=== PATIENT | female | born 1985 | race Caucasian/White ===

== ENCOUNTER 2018-03-24 17:20 | Observation (INO) | payer BC, OTHER ==
[2018-03-24 18:30] VITALS: BMI 32.1
[2018-03-24] MEDS ORDERED: METOPROLOL TAR 25 MG TAB PO ONE (19:00)
[2018-03-24] MEDS ORDERED: ASPIRIN 325 MG TAB PO ONE (19:00)
[2018-03-24] MEDS ORDERED: ENOXAPARIN 80 MG/0.8 ML SQ ONE (19:00)
[2018-03-24 20:17] LABS: Absolute Lymphocytes (CBC) 2.5 K/uL (0.7-4.9); Absolute Monocytes 0.3 K/uL (0.1-1.3); Basophils % 0.4 % (0-1.3); Eosinophils % 1.2 % (0-4.4); Hematocrit 38.9 % (36.0-45.0); Lymphocytes % 27.6 % (15.3-44.8); MCH 35.7 pg (27.0-35.0); MCV 104.1 fL (80-100); MPV 7.4 fL (7.6-11.3); Monocytes % 3.8 % (3.3-12.3); RBC Red Blood Cell Count 3.74 M/uL (3.86-4.86)
[2018-03-24 20:20] LABS: ALT/SGPT 49 U/L (12-78); AST/SGOT 114 U/L (15-37); Albumin 3.4 g/dL (3.4-5.0); Alkaline Phosphatase 112 U/L (45-117); BUN Blood Urea Nitrogen 6 mg/dL (7-18); Bicarbonate 26 mmol/L (21-32); Bilirubin Total 0.2 mg/dL (0.2-1.0); Glucose Level 95 mg/dL (74-106); NT PRO-BNP 79 pg/mL (<125); Potassium 4.2 mmol/L (3.5-5.1); Protein, Total 7.8 g/dL (6.4-8.2); Sodium Level 138 mmol/L (136-145); Troponin I < 0.02 ng/mL (0.0-0.045)
--- NOTE | 2018-03-24 20:50 | RAD REPORT ---
EXAM DESCRIPTION: RAD - Chest Pa And Lat (2 Views) - 03/24/2018 8:37 pm CLINICAL HISTORY: Chest pain COMPARISON: None. TECHNIQUE: PA and lateral views of the chest were obtained. FINDINGS: The lungs are clear. Heart size is normal and central vasculature is within normal limit s. No pleural effusion or pneumothorax seen. No acute bony finding noted. No aortic abnormality. IMPRESSION: No acute cardiopulmonary process.
[2018-03-24] MEDS ORDERED: INFLUENZA VACCINE (for 3y+) 0.5 ML DOSE IMVAC ONE (21:00)
[2018-03-25] MEDS ORDERED: AMLODIPINE 10 MG TAB PO SCH (09:00)
[2018-03-25] MEDS ORDERED: LISINOPRIL 20 MG TAB PO SCH (09:00)
--- NOTE | 2018-03-25 09:58 | TREADKAT ---
90% H.R.: 167 100% H.R.: 186 Date of Study: 03/25/2018 Ht: 5 7 Wt: 205 lb 0 oz Consulting Physician: JEROD MEDICATIONS: NORVASC, LIPITOR, PRINIVIL HISTORY: CHEST PAINS PHYSICIAL EXAMINATION: RESTING B.P.: 156/107 RESTING H.R.: 97 RESTING EKG: DECREASED T WAVE ANTERIOR WALL EXERCISE TIME: 4:06 MAXIMUM HEART RATE: 162 102% OF PREDICTED B.P. AT PEAK STRESS: 152/109 H.R. AT 1 MINUTE POST EXERCISE: 151 IMPRESSION: QUESTIONABLE ANGINA AT 3 MINUTES. NON DIAGNOSTIC CHANGE ANTERIOR WALL.
[2018-03-25 10:23] VITALS: O2SAT 100
--- NOTE | 2018-03-25 12:22 | RAD REPORT ---
EXAM DESCRIPTION: NM - Rest Stress Cardiac Imaging - 03/25/2018 11:21 am CLINICAL HISTORY: CHEST PAIN Chest pain. COMPARISON: No comparisons TECHNIQUE: The patient was administered approximately 10mCi of Tc 99m Sestamibi prior to resting SPE CT imaging of the heart. The patient was then administered approximately 30 mCi of Tc 99m Sestamibi f ollowing exercise or pharmacologic stress. Multiplanar SPECT images were reviewed. FINDINGS: No stress induced ischemic defect is seen to suggest stress induced ischemia. No fixed def ect is seen to suggest hibernating myocardium or scarred myocardium. The end diastolic volume is 75 ml, the end systolic volume is 31 ml, and the ejection fraction is 59 %. IMPRESSION: No stress induced ischemia.
[2018-03-25 14:33] VITALS: BP 134/94; TEMP 97.9
[2018-03-25] MEDS ORDERED: ATORVASTATIN 10 MG TAB PO SCH (21:00)
--- NOTE | 2018-03-25 23:51 | HP ---
Date of Admission: 03/24/2018 Chief Complaint: Recurrent chest pain. History Of Present Illness: A 32-year-old female was brought to the office with recurrent retrostern al chest pain. The patient's EKG in the office showed T-wave inversion anterior wall. In view of he r symptoms and findings, the patient was admitted for observation. Past Medical History: Positive for hypertension, hyperlipidemia. Family History: Strongly positive for coronary artery disease. Personal History: Nonsmoker. Home Medicines: Norvasc, lisinopril, Lipitor. Review of Systems: No fever, chills, rigors. Physical Examination: General: Revealed a 32-year-old female, not in acute distress. Vital Signs: Normal. HEENT: Negative. Neck: Supple. JVD negative. Chest: Clear. Heart: Regular. Abdomen: Soft. Extremities: Mild pedal edema. Laboratory: Troponin normal. BNP normal. WBC normal. Chest x-ray negative. Assessment: 1.Recurrent chest pain. 2.Hypertension. 3.Hyperlipidemia. 4.Strong family history of coronary artery disease. Plan: The patient had initial troponin negative and the patient subsequently underwent Cardiolite st ress test. This has been reported as negative. In view of this, the patient will be discharged on t he same medications and she will be followed in the office. PATTI/WIN Voice ID: [id number]
== END 2018-03-25 15:08 | disposition home or self-care (01) ==
LOC: 4TH 17:54
PROVIDERS: ADMIT Internal Medicine; ATTEND Internal Medicine
DX: R07.9 Chest pain, unspecified (principal); I10 Essential (primary) hypertension; E78.5 Hyperlipidemia, unspecified; Z82.49 Family history of ischemic heart disease and other diseases of the circulatory system
CPT/HCPCS: 36415; 71046; 78452; 80053; 83880; 84484; 85025; 93017; A9500; G0378; J1650

== ENCOUNTER 2020-02-01 09:27 | Emergency (ER) | payer BC ==
[2020-02-01 10:24] LABS: Absolute Lymphocytes (CBC) 3.1 K/uL (0.7-4.9); Basophils % 0.8 % (0-1.3); Hematocrit 40.1 % (36.0-45.0); Lymphocytes % 44.9 % (15.3-44.8); MPV 7.7 fL (7.6-11.3)
[2020-02-01] MEDS ORDERED: ASPIRIN 81 MG CHEWABLE TABLET ONE (10:30)
[2020-02-01 10:40] LABS: ALT/SGPT 56 U/L (12-78); AST/SGOT 98 U/L (15-37); Albumin 3.8 g/dL (3.4-5.0); Alkaline Phosphatase 104 U/L (45-117); BUN Blood Urea Nitrogen 8 mg/dL (7-18); Bicarbonate 25 mmol/L (21-32); Bilirubin Direct 0.1 mg/dL (0-0.2); Bilirubin Total 0.2 mg/dL (0.2-1.0); Glucose Level 117 mg/dL (74-106); Magnesium 1.7 mg/dL (1.8-2.4); NT PRO-BNP 15 pg/mL (<125); Potassium 4.1 mmol/L (3.5-5.1); Protein, Total 8.4 g/dL (6.4-8.2); Sodium Level 139 mmol/L (136-145); Troponin (Emerg Dept Use Only) < 0.02 ng/mL (0.0-0.045)
--- NOTE | 2020-02-01 10:40 | RAD REPORT ---
EXAM DESCRIPTION: RAD - Chest Single View - 02/01/2020 10:25 am CLINICAL HISTORY: ABDOMINAL DISTENTION, chest pain COMPARISON: February 2018 TECHNIQUE: AP portable chest image was obtained 02/01/2020 10:25 am . FINDINGS: Lungs are clear. Heart and vasculature are normal. No measurable pleural effusion and no p neumothorax. No acute bony abnormality seen. No acute aortic findings suspected. IMPRESSION: No acute cardiopulmonary process.
--- NOTE | 2020-02-01 10:44 | RAD REPORT ---
EXAM DESCRIPTION: CT - Chest For Pe Angio - 02/01/2020 10:25 am CLINICAL HISTORY: CHEST PAIN COMPARISON: Chest Single View dated 02/01/2020 TECHNIQUE: Dynamically enhanced 3 mm thick images of the chest were obtained during administration o f approximately 150mL Isovue 370 IV contrast. Coronal and oblique MIP reconstruction images were gene rated and reviewed. Exam utilizes a protocol to evaluate the pulmonary arterial tree. All CT scans are performed using dose optimization technique as appropriate and may include automated exposure control or mA/KV adjustment according to patient size. FINDINGS: No pulmonary emboli are identified. The aorta as imaged shows no acute or suspicious finding. No pericardial thickening or effusion. No focal mass or consolidation. Respiratory motion accentuates the interstitial pattern. There is jett e minimal ground-glass opacification in the left upper lobe. No pleural effusion or pleural thickenin g. No mediastinal or hilar suspicious masses. No chest wall masses or abnormal axillary lymphadenopathy. Minimal hiatal hernia is present. Partially imaged liver shows mild fatty infiltration. IMPRESSION: No pulmonary emboli identified. No focal mass or consolidation. Prominent interstitial pattern and minimal hazy ground-glass opacific ation in the left upper lobe could indicate a minimal interstitial edema or infiltrate. Fatty infiltration of a partially imaged liver.
--- NOTE | 2020-02-01 11:08 | ER ---
Nurse's Notes [facility] Name: Nu Mcadams Age: 34 yrs Sex: Female : 1985 Arrival Date: 02/01/2020 Time: 09:29 Bed 8 Private MD: Kwame Gonzales R Diagnosis: Chest pain, unspecified;Acute bronchitis, unspecified Presentation: 01/31 09:37 Chief complaint: Patient states: can't breathe, is having pain across chest radiating iw to back, X 1 week, and has had swelling in feet X 2 weeks, hx of [place] in 2018 , is vomiting every morning, no cough fever or chills. Coronavirus screen: At this time, the client does not indicate any symptoms associated with coronavirus-19. Ebola Screen: Patient negative for fever greater than or equal to 101.5 degrees Fahrenheit, and additional compatible Ebola Virus Disease symptoms Patient denies exposure to infectious person. Patient denies travel to an Ebola-affected area in the 21 days before illness onset. No symptoms or risks identified at this time. Initial Sepsis Screen: Does the patient meet any 2 criteria? No. Patient's initial sepsis screen is negative. Does the patient have a suspected source of infection? No. Patient's initial sepsis screen is negative. Risk Assessment: Do you want to hurt yourself or someone else? Patient reports no desire to harm self or others. Onset of symptoms was January 26, 2020. 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 - Social history:: Smoking status: Patient/guardian denies using tobacco, the patient reports quitting approximately 2 years ago. Screenin:26 Abuse screen: Denies threats or abuse. Denies injuries from another. Nutritional sv screening: No deficits noted. Tuberculosis screening: No symptoms or risk factors identified. Fall Risk None identified. Assessment: 10:30 General: Appears in no apparent distress. comfortable, well developed, Behavior is sv calm, cooperative, appropriate for age. Pain: Complains of pain in chest Pain does not radiate. Pain currently is 9 out of 10 on a pain scale. Quality of pain is described as sharp, Pain began 1 day ago. Is intermittent, Aggravated by increased activity, Also complains of nausea. Neuro: Level of Consciousness is awake, alert, obeys commands, Oriented to person, place, time, situation, Moves all extremities. Full function Speech is normal. Cardiovascular: Rhythm is sinus rhythm. Respiratory: Airway is patent Respiratory effort is even, unlabored, Respiratory pattern is regular, symmetrical. Derm: Skin is pink, warm \T\ dry. Musculoskeletal: Reports BLE swelling. 11:26 Reassessment: Patient appears in no apparent distress at this time. Patient and/or sv family updated on plan of care and expected duration. Pain level reassessed. Patient is alert, oriented x 3, equal unlabored respirations, skin warm/dry/pink. Vital Signs: 09:37 BP 122 / 86; Pulse 110; Resp 16 S; Pulse Ox 97% on R/A; Weight 99.79 kg; Height 5 ft. 7 iw in. (170.18 cm); Pain 9/10; 10:35 BP 125 / 82; Pulse 92 MON; Resp 19; Pulse Ox 96% on R/A; sv 11:27 BP 113 / 74; Pulse 78; Resp 15; Pulse Ox 97% ; sv 09:37 Body Mass Index 34.46 (99.79 kg, 170.18 cm) iw 10:35 Sinus Rhythm sv ED Course: 09:29 Patient arrived in ED. mr 09:29 Kwame Gonzales MD is Private Physician. mr 09:40 Triage completed. iw 09:42 Arm band placed on. iw 09:43 Divya Gallardo, HUMZA is Primary Nurse. [id number] 09:43 Cris Al[facility]endarez FNP-C [facility]. snw 09:43 Camilo Bodn MD is Attending Physician. snw 10:10 Carolann Owen, HUMZA is Primary Nurse. sv 10:12 Initial lab(s) drawn, by nv, sent to lab. Inserted saline lock: 20 gauge in right iw antecubital area, using aseptic technique. Blood collected. Patient maintains SpO2 saturation greater than 95% on room air. 10:25 XRAY Chest (1 view) In Process Unspecified. EDMS 10:26 CT Chest For PE Angio In Process Unspecified. EDMS 10:26 Patient has correct armband on for positive identification. Bed in low position. Call sv light in reach. Side rails up X2. furniture upholsterer on. Pulse ox on. NIBP on. Door closed. Head of bed elevated. 11:07 Kwame Gonzales MD is Referral Physician. snw 11:27 No provider procedures requiring assistance completed. IV discontinued, intact, sv bleeding controlled, No redness/swelling at site. Pressure dressing applied. Administered Medications: 10:35 Drug: Aspirin Chewable Tablet 324 mg Route: PO; sv 11:26 Follow up: Response: No adverse reaction sv 11: Drug: Zithromax 500 mg Route: PO; sv 11:26 Follow up: Response: No adverse reaction; Medication administered at discharge. sv Outcome: 11:08 Discharge ordered by . snw 11:27 Discharged to home ambulatory. sv 11:27 Condition: stable 11:27 Discharge instructions given to patient, Instructed on discharge instructions, follow up and referral plans. medication usage, Demonstrated understanding of instructions, follow-up care, medications, Prescriptions given X 2. 11:27 Patient left the ED. sv Signatures: Dispatcher [employer] EDMS Carolann Owen, HUMZA CHING Cris Almendarez, BARREL BUNG REMOVER AND DUMPER-C BARREL BUNG REMOVER AND DUMPER-Csnw Merry Gallardo Mari Finn RN RN Divya Gallardo RN RN [id number] Corrections: (The following items were deleted from the chart) 10:35 10:35 BP 125 / 82; Pulse 92bpm; Resp 19bpm; Pulse Ox 96% RA; sv sv
--- NOTE | 2020-02-01 11:08 | EDPHYS ---
Physician Documentation [facility] Name: Nu Mcadams Age: 34 yrs Sex: Female : 1985 Arrival Date: 02/01/2020 Time: 09:29 Bed 8 Private MD: Kwame Gonzales R ED Physician Camilo Bond HPI: 01/31 10:10 This 34 yrs old Female presents to ER via Ambulatory with complaints of Chest snw Pain, Leg Swelling. 10:11 The patient or guardian reports chest pain that is located primarily in the anterior snw chest wall, bilaterally. The pain does not radiate. Associated signs and symptoms: Pertinent positives: lower extremity swelling, shortness of breath. The chest pain is described as a heaviness. Duration: The patient or guardian reports multiple episodes. Modifying factors: The symptoms are alleviated by nothing. the symptoms are aggravated by nothing. Severity of pain: At its worst the pain was moderate. It is unknown whether or not the patient has had similar symptoms in the past. sees Dr. Gonzales. 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 - Social history:: Smoking status: Patient/guardian denies using tobacco, the patient reports quitting approximately 2 years ago. ROS: 10:09 Constitutional: Negative for fever, chills, and weight loss, Eyes: Negative for injury, snw pain, redness, and discharge, ENT: Negative for injury, pain, and discharge, Neck: Negative for injury, pain, and swelling. 10:09 Abdomen/GI: Negative for abdominal pain, nausea, vomiting, diarrhea, and constipation, Back: Negative for injury and pain, : Negative for injury, bleeding, discharge, and swelling, Skin: Negative for injury, rash, and discoloration, Neuro: Negative for headache, weakness, numbness, tingling, and seizure. 10:09 MS/Extremity: Negative for injury and deformity. 10:09 Cardiovascular: Positive for chest pain, of the chest. 10:09 Cardiovascular: Positive for edema. 10:09 Respiratory: Positive for shortness of breath, at rest. "I can't breathe". Exam: 10:02 Constitutional: This is a well developed, well nourished patient who is awake, alert, snw and in no acute distress. Head/Face: Normocephalic, atraumatic. Eyes: Pupils equal round and reactive to light, extra-ocular motions intact. Lids and lashes normal. Conjunctiva and sclera are non-icteric and not injected. Cornea within normal limits. Periorbital areas with no swelling, redness, or edema. +exopthalmus ENT: Nares patent. No nasal discharge, no septal abnormalities noted. Tympanic membranes are normal and external auditory canals are clear. Oropharynx with no redness, swelling, or masses, exudates, or evidence of obstruction, uvula midline. Mucous membranes moist. Neck: Trachea midline, no thyromegaly or masses palpated, and no cervical lymphadenopathy. Supple, full range of motion without nuchal rigidity, or vertebral point tenderness. No Meningismus. Chest/axilla: Normal chest wall appearance and motion. Nontender with no deformity. No lesions are appreciated. Respiratory: Lungs have equal breath sounds bilaterally, clear to auscultation and percussion. No rales, rhonchi or wheezes noted. No increased work of breathing, no retractions or nasal flaring. Abdomen/GI: Soft, non-tender, with normal bowel sounds. No distension or tympany. No guarding or rebound. No evidence of tenderness throughout. Back: No spinal tenderness. No costovertebral tenderness. Full range of motion. Skin: Warm, dry with normal turgor. Normal color with no rashes, no lesions, and no evidence of cellulitis. MS/ Extremity: Pulses equal, no cyanosis. Neurovascular intact. Full, normal range of motion. Neuro: Awake and alert, GCS 15, oriented to person, place, time, and situation. Cranial nerves II-XII grossly intact. Motor strength 5/5 in all extremities. Sensory grossly intact. Cerebellar exam normal. Normal gait. Psych: Awake, alert, with orientation to person, place and time. Behavior, mood, and affect are within normal limits. 10:02 Cardiovascular: Rate: tachycardic, Rhythm: regular, Pulses: no pulse deficits are appreciated, Heart sounds: normal, Edema: is not appreciated. Vital Signs: 09:37 BP 122 / 86; Pulse 110; Resp 16 S; Pulse Ox 97% on R/A; Weight 99.79 kg; Height 5 ft. 7 iw in. (170.18 cm); Pain 9/10; 10:35 BP 125 / 82; Pulse 92 MON; Resp 19; Pulse Ox 96% on R/A; sv 11:27 BP 113 / 74; Pulse 78; Resp 15; Pulse Ox 97% ; sv 09:37 Body Mass Index 34.46 (99.79 kg, 170.18 cm) iw 10:35 Sinus Rhythm sv MDM: 10:02 Patient medically screened. snw 11:16 Data reviewed: vital signs, nurses notes. Data interpreted: Pulse oximetry: on room air snw is 97 %. Interpretation: normal. 01/31 09:52 Order name: Basic Metabolic Panel; Complete Time: 10:50 snw 01/31 09:52 Order name: CBC with Diff; Complete Time: 10:34 snw 01/31 09:52 Order name: LFT's; Complete Time: 10:50 snw 01/31 09:52 Order name: Magnesium; Complete Time: 10:50 snw 01/31 09:52 Order name: NT PRO-BNP; Complete Time: 10:50 snw 01/31 09:52 Order name: PT-INR; Complete Time: 10:34 snw 01/31 09:52 Order name: Troponin (emerg Dept Use Only); Complete Time: 10:50 snw 01/31 09:52 Order name: XRAY Chest (1 view); Complete Time: 10:50 snw 01/31 09:52 Order name: EKG; Complete Time: 09:53 snw 01/31 09:54 Order name: CT Chest For PE Angio; Complete Time: 10:50 snw 01/31 09:59 Order name: TSH; Complete Time: 10:50 snw 01/31 11:05 Order name: CREATININE WHOLE BLOOD; Complete Time: 11:07 EDMS 01/31 09:52 Order name: Cardiac monitoring; Complete Time: 10:10 snw 01/31 09:52 Order name: EKG - Nurse/Tech; Complete Time: 10:10 snw 07 09:52 Order name: IV Saline Lock; Complete Time: 10:10 01/31 09:52 Order name: Labs collected and sent; Complete Time: 10:01/31 09:52 Order name: O2 Per Protocol; Complete Time: 10:01/31 09:52 Order name: O2 Sat Monitoring; Complete Time: 10:10 snw EC:02 Rate is 92 beats/min. Rhythm is regular. QRS [place] is Normal. [place] interval is normal. QT snw interval is prolonged. T waves are Inverted in leads V2, V3, V4. Clinical impression: NSR w/ Non-specific ST/T Changes. Administered Medications: 10:35 Drug: Aspirin Chewable Tablet 324 mg Route: PO; sv 11:26 Follow up: Response: No adverse reaction sv 11:26 Drug: Zithromax 500 mg Route: PO; sv 11:26 Follow up: Response: No adverse reaction; Medication administered at discharge. sv Disposition: 17:19 Co-signature as Attending Physician, Camilo Bond MD. ma2 Disposition: 02/01/20 11:08 Discharged to Home. Impression: Chest pain, unspecified, Acute bronchitis, unspecified. - Condition is Stable. - Discharge Instructions: Acute Bronchitis, Adult, Nonspecific Chest Pain, Rehydration, Adult, Peripheral Edema. - Prescriptions for Albuterol Sulfate 90 mcg/actuation - inhale 1-2 puff by INHALATION route every 4-6 hours; 1 Inhaler. Zithromax 500 mg Oral Tablet - take 1 tablet by ORAL route once daily for 5 days; 5 tablet. - Work release form, Medication Reconciliation Form, Thank You Letter, Antibiotic Education, Prescription Opioid Use form. - Follow up: Emergency Department; When: As needed; Reason: Worsening of condition. Follow up: Kwame Gonzales MD; When: 2 - 3 days; Reason: Recheck today's complaints, Continuance of care, Re-evaluation by your physician. Signatures: Dispatcher [employer] Carolann Serrano RN RN sv Waters, Shelly, PROCESSING LEAD-C PROCESSING LEAD-[place] Mari Finn RN RN iw Alzahri, Mohammad, MD MD ma2 Corrections: (The following items were deleted from the chart) 11:27 11:08 02/01/2020 11:08 Discharged to Home. Impression: Chest pain, unspecified; Acute sv bronchitis, unspecified. Condition is Stable. Forms are Medication Reconciliation Form, Thank You Letter, Antibiotic Education, Prescription Opioid Use. Follow up: Emergency Department; When: As needed; Reason: Worsening of condition. Follow up: Kwame Gonzales; When: 2 - 3 days; Reason: Recheck today's complaints, Continuance of care, Re-evaluation by your physician. snw
[2020-02-01] MEDS ORDERED: AZITHROMYCIN 250 MG TAB ONE (11:24)
[2020-02-02 00:25] VITALS: BP 113/74; O2SAT 97
--- NOTE | 2020-02-02 20:03 | EKG ---
Test Date: 2020-02-01 Test Time: 09:49:32 Retail Support Specialist: KATIE MEASUREMENT RESULTS: Intervals: Rate: 92 OK: 156 QRSD: 90 QT: 386 QTc: 477 Stella: P: 29 OK: 156 QRS: 7 T: -15 INTERPRETIVE STATEMENTS: Normal sinus rhythm Low voltage QRS T wave abnormality, consider anterior ischemia Prolonged QT Abnormal ECG No previous ECG available for comparison Electronically Signed On 02-02-20 19:59:32 CDT by Kenneth Boothe
== END 2020-02-01 11:27 | disposition home or self-care (01) ==
LOC: ER 09:27
DX: J20.9 Acute bronchitis, unspecified (principal); I10 Essential (primary) hypertension; E78.5 Hyperlipidemia, unspecified; I25.2 Old myocardial infarction
CPT/HCPCS: 93005; 85025; 80048; 36415; 83735; 85610; 82565; 80076; 84443; 84484; 83880; 71275; 71045; 99285; Q9967

== ENCOUNTER 2021-09-14 15:00 | Emergency (ER) | payer BC, SELFPAY ==
--- OUTSIDE RECORDS SUMMARY | 2021-09-14 15:03 | XMS REPORT | Continuity of Care Document ---
:[address] [facility] t Address [address] [place] [address] Care Team Providers Name Role Phone Lab, Fam Pob I Attending Clinician Unavailable Jennifer BARTHOLOMEW Attending Clinician Doctor Unassigned, Name Attending Clinician Unavailable Payers Payer Name Policy Type Policy Number Effective Date Expiration Date S ource Problems This patient has no known problems. Allergies, Adverse Reactions, Alerts Allergy Allergy Status Severity Reaction(s) Onset Inactive Treating Comm ents Source Name Type Date Date Clinician NO KNOWN Drug Active Univers ALLERGIE Class it[facility] of [facility] Social History Social Habit Start Date Stop Date Quantity Comments [facility] to [facility] Smoking Status Start Date Stop Date Source [facility] Medications This patient has no known medications. Procedures This patient has no known procedures. Encounters Start End Encounter Admission Attending Care Care Encounter Source Date/Time Date/Time Type Type Clinicians Facility Department ID 2020-05-10 2020-05-10 Laboratory Lab, [facility] Fam Pob I [facility] [id number] Univers 10:52:48 11:12:48 Only Airam Rodriguez [facility] [id number] [facility] [id number] Girish as Magda [phone] Wi dical [address] Office [address] 2020-05-10 2020-05-10 Outpatient R [facility] [id number] Univers 10:40:00 10:40:00 ity [facility] 2020-05-10 2020-05-10 Letter Doctor LO [id number] Univers 00:00:00 00:00:00 (Out) Unassigned, JUAN [id number] ity of [place] [facility] [id number] Girish as [phone] [place] [address] [address] Results This patient has no known results.
--- NOTE | 2021-09-14 16:05 | EDPHYS ---
Physician Documentation [facility] Name: Nu Mcadams Age: 36 yrs Sex: Female : 1985 Arrival Date: 09/14/2021 Time: 15:06 Bed 11 Private MD: ED Physician Camilo Bond HPI: 09/14 16:02 This 36 yrs old Female presents to ER via Ambulatory with complaints of Rash. ma2 16:02 86-year-old female with history of psoriasis, presents with psoriasis flareup in both ma2 arms and upper chest, bilateral upper thigh, she had similar symptoms in the past she takes hydrocortisone ointment which has not been helping, patient also started taking Benadryl at home and calamine lotion, patient asked for steroid shot and prescription for steroid. Historical: - Allergies: 15:10 No Known Allergies; ab2 - PMHx: 15:10 Hyperlipidemia; Hypertension; Myocardial infarction; ab2 - Immunization history:: Adult Immunizations up to date. - Social history:: Smoking status: Patient denies any tobacco usage or history of. - Family history:: not pertinent. ROS: 16:02 Constitutional: Negative for fever, chills, and weight loss. ma2 16:02 All other systems are negative. Exam: 16:02 Constitutional: This is a well developed, well nourished patient who is awake, alert, ma2 and in no acute distress. Head/Face: Normocephalic, atraumatic. Eyes: Pupils equal round and reactive to light, extra-ocular motions intact. Lids and lashes normal. Conjunctiva and sclera are non-icteric and not injected. Cornea within normal limits. Periorbital areas with no swelling, redness, or edema. ENT: Nares patent. No nasal discharge, no septal abnormalities noted. Tympanic membranes are normal and external auditory canals are clear. Oropharynx with no redness, swelling, or masses, exudates, or evidence of obstruction, uvula midline. Mucous membranes moist. Neck: Trachea midline, no thyromegaly or masses palpated, and no cervical lymphadenopathy. Supple, full range of motion without nuchal rigidity, or vertebral point tenderness. No Meningismus. Chest/axilla: Normal chest wall appearance and motion. Nontender with no deformity. No lesions are appreciated. Cardiovascular: Regular rate and rhythm with a normal S1 and S2. No gallops, murmurs, or rubs. Normal PMI, no JVD. No pulse deficits. Respiratory: Lungs have equal breath sounds bilaterally, clear to auscultation and percussion. No rales, rhonchi or wheezes noted. No increased work of breathing, no retractions or nasal flaring. Abdomen/GI: Soft, non-tender, with normal bowel sounds. No distension or tympany. No guarding or rebound. No evidence of tenderness throughout. Back: No spinal tenderness. No costovertebral tenderness. Full range of motion. Skin: Patient has scattered scaling Psoriatec rash both flexor aspect of both arms and hips and upper chest, otherwise warm, dry with normal turgor. Normal color with no rashes, no lesions, and no evidence of cellulitis. MS/ Extremity: Pulses equal, no cyanosis. Neurovascular intact. Full, normal range of motion. Neuro: Awake and alert, GCS 15, oriented to person, place, time, and situation. Cranial nerves II-XII grossly intact. Motor strength 5/5 in all extremities. Sensory grossly intact. Cerebellar exam normal. Normal gait. Vital Signs: 15:08 BP 136 / 97; Pulse 107; Resp 17; Temp 98.0; Pulse Ox 100% ; Weight 90.72 kg; Height 5 ab2 ft. 7 in. (170.18 cm); Pain 0/10; 15:20 BP 130 / 92; Pulse 99; Resp 18; Pulse Ox 100% on R/A; Pain 0/10; ld1 15:08 Body Mass Index 31.32 (90.72 kg, 170.18 cm) ab2 MDM: 15:13 Patient medically screened. ma2 16:02 Differential diagnosis: Psoriasis flareup versus rash versus allergic reaction, there ma2 is no clinical cellulitis. Data reviewed: vital signs, nurses notes. Counseling: I had a detailed discussion with the patient and/or guardian regarding: the historical points, exam findings, and any diagnostic results supporting the discharge/admit diagnosis, the presence of at least one elevated blood pressure reading (>120/80) during this emergency department visit, the need for outpatient follow up. Response to treatment: the patient's symptoms have markedly improved after treatment. Administered Medications: 16:21 Drug: MethylPREDNISolone Sodium Succinate 125 mg Route: IM; Site: right deltoid; ld1 Disposition Summary: 09/14/21 16:05 Discharge Ordered Location: Home ma2 Condition: Stable ma2 Diagnosis - Rash and other nonspecific skin eruption ma2 Followup: ma2 - With: Private Physician - When: Tomorrow - Reason: If symptoms return, Continuance of care Discharge Instructions: - Discharge Summary Sheet ma2 - Rash, Adult, [id number] ma2 Forms: - Medication Reconciliation Form ma2 - Thank You Letter ma2 - Antibiotic Education ma2 - Prescription Opioid Use ma2 - Work release form ld1 Prescriptions: - Medrol (Milad) 4 mg Oral Tablets, Dose Pack - take 1 tablet by ORAL route as directed - follow package instructions; 1 ma2 packet; Refills: 0, Product Selection Permitted Signatures: Camilo Bond MD MD ma2 Kylei Carbajal RN RN ld1 Sukumar Yuan2
--- NOTE | 2021-09-14 16:05 | ER ---
Nurse's Notes [facility] Name: Nu Mcadams Age: 36 yrs Sex: Female : 1985 Arrival Date: 09/14/2021 Time: 15:06 Bed 11 Private MD: Diagnosis: Rash and other nonspecific skin eruption Presentation: 09/14 15:08 Chief complaint: Patient states: 'Susan had this rash for about a month and I thought it ab2 was my psoriasis but nothing I do helps." Pt states she has rash to chest, both arms and back of both legs. Coronavirus screen: Vaccine status: Patient reports receiving the 2nd dose of the covid vaccine. Client denies travel out of the [place] in the last 14 days. At this time, the client does not indicate any symptoms associated with coronavirus-19. Ebola Screen: Patient negative for fever greater than or equal to 101.5 degrees Fahrenheit, and additional compatible Ebola Virus Disease symptoms Patient denies exposure to infectious person. Patient denies travel to an Ebola-affected area in the 21 days before illness onset. No symptoms or risks identified at this time. Initial Sepsis Screen: Does the patient meet any 2 criteria? No. Patient's initial sepsis screen is negative. Does the patient have a suspected source of infection? No. Patient's initial sepsis screen is negative. Risk Assessment: Do you want to hurt yourself or someone else? Patient reports no desire to harm self or others. Onset of symptoms is unknown. 15:08 Method Of Arrival: Ambulatory ab2 15:08 Acuity: JEAN-CLAUDE 4 ab2 Triage Assessment: 15:10 General: Appears in no apparent distress. uncomfortable, Behavior is calm, cooperative, ab2 appropriate for age. Pain: Denies pain. Cardiovascular: No deficits noted. Respiratory: No deficits noted. Airway is patent Respiratory effort is even, unlabored, Respiratory pattern is regular, symmetrical. GI: No deficits noted. No signs and/or symptoms were reported involving the gastrointestinal system. Derm: Rash noted that is itchy, red, raised, Reports itching, pain. Historical: - Allergies: 15:10 No Known Allergies; ab2 - PMHx: 15:10 Hyperlipidemia; Hypertension; Myocardial infarction; ab2 - Immunization history:: Adult Immunizations up to date. - Social history:: Smoking status: Patient denies any tobacco usage or history of. - Family history:: not pertinent. Screenin:20 Abuse screen: Denies threats or abuse. Denies injuries from another. Nutritional ld1 screening: No deficits noted. Tuberculosis screening: No symptoms or risk factors identified. Fall Risk None identified. Assessment: 15:20 General: Appears in no apparent distress. comfortable, Behavior is calm, cooperative, ld1 appropriate for age. Pain: Denies pain. Neuro: Level of Consciousness is awake, alert, obeys commands, Oriented to person, place, time, situation. Cardiovascular: Capillary refill < 3 seconds Patient's skin is warm and dry. Respiratory: Airway is patent Respiratory effort is even, unlabored, Respiratory pattern is regular, symmetrical. GI: Abdomen is flat, non-distended. : No signs and/or symptoms were reported regarding the genitourinary system. EENT: No signs and/or symptoms were reported regarding the EENT system. Derm: Rash noted that is on back, abdomen, right arm, left arm, right leg and left leg. Musculoskeletal: No signs and/or symptoms reported regarding the musculoskeletal system. Vital Signs: 15:08 BP 136 / 97; Pulse 107; Resp 17; Temp 98.0; Pulse Ox 100% ; Weight 90.72 kg; Height 5 ab2 ft. 7 in. (170.18 cm); Pain 0/10; 15:20 BP 130 / 92; Pulse 99; Resp 18; Pulse Ox 100% on R/A; Pain 0/10; ld1 15:08 Body Mass Index 31.32 (90.72 kg, 170.18 cm) ab2 ED Course: 15:06 Patient arrived in ED. as 15:10 Triage completed. ab2 15:10 Arm band placed on right wrist. ab2 15:11 Kylie Carbajal, HUMZA is Primary Nurse. ld1 15:13 Camilo Bond MD is Attending Physician. ma2 15:20 Patient has correct armband on for positive identification. Placed in gown. Bed in low ld1 position. Call light in reach. Side rails up X2. laboratory monitor on. Pulse ox on. NIBP on. Door closed. Noise minimized. Warm blanket given. 15:20 No provider procedures requiring assistance completed. ld1 16:23 Patient did not have IV access during this emergency room visit. ld1 Administered Medications: 16:21 Drug: MethylPREDNISolone Sodium Succinate 125 mg Route: IM; Site: right deltoid; ld1 Outcome: 16:05 Discharge ordered by . ma2 16:23 Discharged to home ambulatory. ld1 16:23 Condition: stable 16:23 Discharge instructions given to patient, Instructed on discharge instructions, follow up and referral plans. medication usage, Demonstrated understanding of instructions, follow-up care, medications, Prescriptions given X 1. 16:23 Patient left the ED. ld1 Signatures: Carolina Young Mohammad, MD MD ma2 Kylie Carbajal RN RN ld1 Sukumar Yuan2
[2021-09-14] MEDS ORDERED: METHYLPREDNISOLONE 125 MG INJ ONE (16:21)
[2021-09-14 16:40] VITALS: TEMP 98; O2SAT 100
[2021-09-14 16:42] VITALS: BP 130/92
== END 2021-09-14 16:23 | disposition home or self-care (01) ==
LOC: ER 15:00
DX: R21 Rash and other nonspecific skin eruption (principal); I10 Essential (primary) hypertension; E78.5 Hyperlipidemia, unspecified; I25.2 Old myocardial infarction
CPT/HCPCS: 96372; 99284; J2930

== ENCOUNTER 2023-02-11 15:07 | Emergency (ER) | payer OTHER ==
--- OUTSIDE RECORDS SUMMARY | 2023-02-11 15:09 | XMS REPORT | Continuity of Care Document ---
:1985 Author Organization [facility] t Address [address] [facility] [address] [place] [id number] Care Team Providers Name Role Phone Lab, [facility] Fam Pob I Attending Clinician Unavailable Airam [place] Attending Clinician Doctor Unassigned, [place] Attending Clinician Unavailable Payers Payer Name Policy Type Policy Number Effective Date Expiration Date S ource Problems This patient has no known problems. Allergies, Adverse Reactions, Alerts Allergy Allergy Status Severity Reaction(s) Onset Inactive Treating Comm ents Source Name Type Date Date Clinician NO KNOWN Drug Active Univers ALLERGIE Class ity of [facility] Social History Social Habit Start Date Stop Date Quantity Comments [facility] to [facility]2 [facility] Smoking Status Start Date Stop Date Source [facility] Medications This patient has no known medications. Procedures This patient has no known procedures. Encounters Start End Encounter Admission Attending Care Care Encounter Source Date/Time Date/Time Type Type Clinicians Facility Department ID 2020-05-10 2020-05-10 Laboratory Lab, [facility] Fam Pob I [facility] [id number] Univers 10:52:48 11:12:48 Only Airam Rodriguez [facility] [id number] [facility] [id number] Girish as Magda [phone] Ct dic[address] Office Building One 2020-05-10 2020-05-10 Outpatient R [facility] [id number] Univers 10:40[facility]00 [facility]:40[facility] 2020-05-10 2020-05-10 Letter Doctor LO [id number] Univers 00:00:00 00:00:00 (Out) Unassigned, JUAN [id number] ity of [place] [facility] [id number] Griish as [phone] [facility] [address] Results This patient has no known results.
--- NOTE | 2023-02-11 16:07 | RAD REPORT ---
EXAM DESCRIPTION: CT - Head Brain Wo Cont - 02/11/2023 3:40 pm CLINICAL HISTORY: sinusitis x 1 month;Dizziness COMPARISON: No comparisons TECHNIQUE: Noncontrast head CT images were obtained without IV contrast. Multiplanar reformats were generated and reviewed. All CT scans are performed using dose optimization technique as appropriate and may include automated exposure control or mA/KV adjustment according to patient size. FINDINGS: No intracranial hemorrhage, mass, or edema. Midline structures are unremarkable. Normal ventricular caliber for age. Valdovinos-white matter differentiation is preserved, without evidence of acute infarct. No abnormal extra- axial fluid collections. Mastoid air cells and visualized portions of the paranasal sinuses are clear. No acute bony findings. IMPRESSION: No evidence of an acute intracranial process.
[2023-02-11 17:59] LABS: Absolute Lymphocytes (CBC) 2.3 K/uL (0.7-4.9); Hematocrit 32.7 % (36.0-45.0); Lymphocytes % 18.9 % (15.3-44.8); MCV 102.5 fL (80-100); MPV 7.4 fL (7.6-11.3); Platelets 218 thou/uL (152-406); RBC Red Blood Cell Count 3.19 M/uL (3.86-4.86)
[2023-02-11 18:42] LABS: Albumin 3.4 g/dL (3.4-5.0); Bilirubin Total 0.5 mg/dL (0.2-1.0); Protein, Total 7.7 g/dL (6.4-8.2)
[2023-02-11 18:47] LABS: Thyroid Stimulating Hormone 5.07 uIU/mL (0.358-3.740)
--- NOTE | 2023-02-11 18:53 | EDPHYS ---
Physician Documentation [facility] Name: Nu Mcadams Age: 37 yrs Sex: Female : 1985 Arrival Date: 02/11/2023 Time: 15:07 Bed 9 Private MD: ED Physician Dakota Wooten HPI: 02/11 15:24 This 37 yrs old Female presents to ER via Ambulatory with complaints of Sinus snw Congestion, Vomiting. 15:24 The patient or guardian reports pt has not felt well x 1 month. Has been to Dr. Ott, w PCP, several times. Pt dx with macrocytic anemia and sinusitis. Given Augmentin, stopped this abx secondary to light sensitivity. Started Levaquin, Flonase, and folic acid. Pt states she became constipated and was given dulcolax. Vomited all weekend and now feels shaky, nauseated, and generally unwell. Onset: The symptoms/episode began/occurred gradually, 1 month(s) ago, and became worse today, and became persistent. Severity of symptoms: At their worst the symptoms were moderate, severe. Associated signs and symptoms: Pertinent positives: nausea, rhinorrhea, sore throat, vomiting. It is unknown whether or not the patient has had similar symptoms in the past. as noted. 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 - Social history:: Smoking status: Reported history of juuling and/or vaping. ROS: 15:23 Eyes: Negative for injury, pain, redness, and discharge, ENT: Negative for injury, snw pain, and discharge, Neck: Negative for injury, pain, and swelling, Cardiovascular: Negative for chest pain, palpitations, and edema, Respiratory: Negative for shortness of breath, cough, wheezing, and pleuritic chest pain, Abdomen/GI: Negative for abdominal pain, nausea, vomiting, diarrhea, and constipation, Back: Negative for injury and pain, : Negative for injury, bleeding, discharge, and swelling, MS/Extremity: Negative for injury and deformity, Skin: Negative for injury, rash, and discoloration, Psych: Negative for depression, anxiety, suicide ideation, homicidal ideation, and hallucinations, 15:23 Constitutional: Positive for body aches, fatigue, malaise, have not felt well since last month. , 15:23 Neuro: Positive for dizziness, near syncope, shakiness, Exam: 15:23 Constitutional: This is a well developed, well nourished patient who is awake, alert, snw and in no acute distress. Head/Face: Normocephalic, atraumatic. Eyes: Pupils equal round and reactive to light, extra-ocular motions intact. Lids and lashes normal. Conjunctiva and sclera are non-icteric and not injected. Cornea within normal limits. Periorbital areas with no swelling, redness, or edema. ENT: Nares patent. No nasal discharge, no septal abnormalities noted. Tympanic membranes are normal and external auditory canals are clear. Oropharynx with no redness, swelling, or masses, exudates, or evidence of obstruction, uvula midline. Mucous membranes moist. Neck: Trachea midline, no thyromegaly or masses palpated, and no cervical lymphadenopathy. Supple, full range of motion without nuchal rigidity, or vertebral point tenderness. No Meningismus. Chest/axilla: Normal chest wall appearance and motion. Nontender with no deformity. No lesions are appreciated. Cardiovascular: Regular rate and rhythm with a normal S1 and S2. No gallops, murmurs, or rubs. Normal PMI, no JVD. No pulse deficits. Respiratory: Lungs have equal breath sounds bilaterally, clear to auscultation and percussion. No rales, rhonchi or wheezes noted. No increased work of breathing, no retractions or nasal flaring. Abdomen/GI: Soft, non-tender, with normal bowel sounds. No distension or tympany. No guarding or rebound. No evidence of tenderness throughout. Back: No spinal tenderness. No costovertebral tenderness. Full range of motion. Skin: Warm, dry with normal turgor. Normal color with no rashes, no lesions, and no evidence of cellulitis. MS/ Extremity: Pulses equal, no cyanosis. Neurovascular intact. Full, normal range of motion. Neuro: Awake and alert, GCS 15, oriented to person, place, time, and situation. Cranial nerves II-XII grossly intact. Motor strength 5/5 in all extremities. Sensory grossly intact. Cerebellar exam normal. Normal gait. Psych: Awake, alert, with orientation to person, place and time. Behavior, mood, and affect are within normal limits. Vital Signs: 15:19 BP 140 / 107 Sitting; Pulse 98; Resp 17; Temp 98.2(TE); Pulse Ox 100% on R/A; Weight me1 55.34 kg; Height 5 ft. 7 in. ; 19:00 BP 123 / 85; Pulse 92; Resp 16; Pulse Ox 100% on R/A; db 15:19 Body Mass Index 19.11 (55.34 kg, 170.18 cm) me1 MDM: 15:12 Patient medically screened. snw 18:54 Differential Diagnosis: Sinusitis Pharyngitis Allergic Rhinitis Viral Syndrome. Data snw reviewed: vital signs, nurses notes. Counseling: I had a detailed discussion with the patient and/or guardian regarding the historical points, exam findings, and any diagnostic results supporting the discharge/admit diagnosis, lab results, radiology results, the need for outpatient follow up, for definitive care, to return to the emergency department if symptoms worsen or persist or if there are any questions or concerns that arise at home. Special discussion: Based on the patient's Hx, exam, and Dx evaluation, there is no indication for emergent surgery or inpatient Tx. It is understood by the patient/guardian that if the Sx's persist or worsen they need to return immediately for re-evaluation. Based on the history and exam findings, there is no indication for further emergent testing or inpatient evaluation. I discussed with the patient/guardian the need to see the primary care provider for further evaluation of the symptoms. 02/11 15:20 Order name: CBC with Diff; Complete Time: 18:23 snw 02/11 15:20 Order name: B12; Complete Time: 19: snw 02/11 15:20 Order name: CMP; Complete Time: 19: snw 02/11 15:20 Order name: TSH; Complete Time: 19: snw 02/11 18:50 Order name: T4 Free; Complete Time: 19: EDMS 02/11 15:20 Order name: CT Head Brain wo Cont; Complete Time: 16:19 snw Administered Medications: No medications were administered Disposition: 16:09 I was immediately available on-site in the Emergency Department for consultation in the ms3 care of the patient. Disposition Summary: 02/11/23 18:53 Discharge Ordered Notes: Location: Home snw Condition: Stable snw Diagnosis - Other malaise and fatigue snw Followup: snw - With: Emergency Department - When: As needed - Reason: Worsening of condition Followup: snw - With: Private Physician - When: 2 - 3 days - Reason: Recheck today's complaints, Continuance of care, Re-evaluation by your physician Discharge Instructions: - Discharge Summary Sheet snw - Fatigue snw - DASH Eating Plan snw - Lactose-Controlled Eating Plan, Adult snw - Vomiting, Adult snw Forms: - Medication Reconciliation Form snw - Thank You Letter snw - Antibiotic Education snw - Prescription Opioid Use snw - Patient Portal Instructions snw - Leadership Thank You Letter snw - Work release form db Prescriptions: - promethazine 25 mg Oral Tablet - take 1 tablet by ORAL route every 6 hours As needed; 20 tablet; Refills: 0, snw Product Selection Permitted Signatures: Dispatcher [employer] EDMS Cris Almendarez, RAG PRODUCTION WORKER-C RAG PRODUCTION WORKER-Csnw Dakota Wooten DO DO ms3 Luz Elena Silva, RN RN me1
--- NOTE | 2023-02-11 18:53 | ER ---
Nurse's Notes [facility] Name: Nu Mcadams Age: 37 yrs Sex: Female : 1985 Arrival Date: 02/11/2023 Time: 15:07 Bed 9 Private MD: Diagnosis: Other malaise and fatigue Presentation: 02/11 15:19 Chief complaint: Patient states: sinus congestion since january 14. tx completed. me1 vomiting, constipation and dizziness for about a week. Coronavirus screen: Vaccine status: Patient reports being unvaccinated. Ebola Screen: No symptoms or risks identified at this time. Initial Sepsis Screen: Does the patient meet any 2 criteria? No. Patient's initial sepsis screen is negative. Does the patient have a suspected source of infection? Yes: Productive cough/pneumonia. Risk Assessment: Do you want to hurt yourself or someone else? Patient reports no desire to harm self or others. Onset of symptoms is unknown. 15:19 Method Of Arrival: Ambulatory me1 15:19 Acuity: JEAN-CLAUDE 4 me1 Triage Assessment: 19:23 GI: Reports. 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 - Social history:: Smoking status: Reported history of juuling and/or vaping. Screenin:10 [facility] ED Fall Risk Assessment (Adult) History of falling in the last 3 months, db including since admission No falls in past 3 months (0 pts) Confusion or Disorientation No (0 pts) Score/Fall Risk Level 0 - 2 = Low Risk Oriented to surroundings, Maintained a safe environment. Abuse screen: Denies threats or abuse. Denies injuries from another. Nutritional screening: No deficits noted. Tuberculosis screening: No symptoms or risk factors identified. Assessment: 17:33 Reassessment: Patient appears in no apparent distress at this time. Patient and/or db family updated on plan of care and expected duration. Pain level reassessed. Patient is alert, oriented x 3, equal unlabored respirations, skin warm/dry/pink. Reassessment: NASAL CONGESTION, VOMITING. General: Appears in no apparent distress. comfortable, Behavior is calm, cooperative. Pain: Complains of pain in abdomen. GI: Abdomen is non-distended. 19:10 Reassessment: Patient appears in no apparent distress at this time. Patient and/or db family updated on plan of care and expected duration. Pain level reassessed. Patient is alert, oriented x 3, equal unlabored respirations, skin warm/dry/pink. Patient states feeling better. Patient states symptoms have improved. Vital Signs: 15:19 BP 140 / 107 Sitting; Pulse 98; Resp 17; Temp 98.2(TE); Pulse Ox 100% on R/A; Weight me1 55.34 kg; Height 5 ft. 7 in. ; 19:00 BP 123 / 85; Pulse 92; Resp 16; Pulse Ox 100% on R/A; db 15:19 Body Mass Index 19.11 (55.34 kg, 170.18 cm) me1 ED Course: 15:10 Patient arrived in ED. mr 15:12 Cris Almendarez FNP-C [facility]. snw 15:12 Dakota Wooten DO is Attending Physician. snw 15:23 Triage completed. me1 15:23 Arm band placed on Patient placed in waiting room. me1 15:41 CT Head Brain wo Cont In Process Unspecified. EDMS 16:33 Natalia Brennan, RN is Primary Nurse. db 17:20 Inserted saline lock: 20 gauge in right antecubital area, using aseptic technique. db Blood collected. 19:10 Patient has correct armband on for positive identification. Bed in low position. Call db light in reach. Side rails up X 1. Provided Education on: DISCHARGE. 19:10 No provider procedures requiring assistance completed. IV discontinued, intact, db bleeding controlled, No redness/swelling at site. Administered Medications: No medications were administered Medication: 19:10 VIS not applicable for this client. db Outcome: 18:53 Discharge ordered by . snw 19:10 Discharged to home ambulatory, db 19:10 Condition: stable 19:10 Discharge instructions given to patient, family, Instructed on discharge instructions, follow up and referral plans. Prescriptions given X 1, 19:24 Patient left the ED. db Signatures: Dispatcher [employer] EDMS Cris Almendarez FNP-C [employer]SUITS INSTRUCTOR-Csnw Merry Gallardo, Reg Reg mr Natalia Brennan, RN RN db Luz Elena Silva, RN RN me1
[2023-02-11 20:21] VITALS: TEMP 98.2; O2SAT 100
[2023-02-11 20:23] VITALS: BP 123/85
== END 2023-02-11 19:24 | disposition home or self-care (01) ==
LOC: ER 15:07
DX: R53.81 Other malaise (principal); R53.83 Other fatigue; R11.10 Vomiting, unspecified; I10 Essential (primary) hypertension
CPT/HCPCS: 36415; 70450; 80053; 82607; 84439; 84443; 85025